=== PATIENT | male | born 1990 | race Caucasian/White ===

== ENCOUNTER 2019-06-07 19:50 | Emergency (ER) | payer SELFPAY ==
[2019-06-07 19:52] VITALS: BP 123/62; PULSE 107; RESP 16; TEMP 36.9; O2SAT 99; BMI 29.2
--- NOTE | 2019-06-07 19:55 | ED_ITS ---
HPI - Seizure General: Chief Complaint: Seizure Stated Complaint: SEIZURE ACTIVITY Time Seen by Provider: 06/07/19 19:52 Source: EMS Mode of arrival: EMS Limitations: no limitations History of Present Illness: HPI Narrative: 29-year-old male who has a long history of seizures. Patient states he has not missed any doses of his seizure medicine but has had increasing seizures. He no longer sees a neurologist but does have an appointment with one coming up that is a new. Patient had a seizure roughly 1 hour before arrival that lasted 2 to 3 minutes. EMS states when they first arrived he was postictal but now is awake and alert able answer my questions. He denies any his head denies any headache. He denies any fevers. He denies any worsening or improving factors. MD complaint: seizure Onset (ago): minute(s) Description of Episode: loss of consciousness, tonic-clonic movement and post- event confusion Witnessed: Yes - by Bystander Trauma: No Seizure History: Yes Place: Home Associated symptoms: Deny chest pain, chills or fever(s) Review of Systems Const: Denies: fever, chills, body aches or change in appetite Eyes: Denies: blurry vision or eye discomfort ENMT: Denies: throat pain or dental pain Card: Denies: chest pain Resp: Denies: shortness of breath GI: Denies: abdominal pain, nausea, vomiting or diarrhea : Denies: painful urination Musc: Denies: neck pain or back pain Skin/Breast: Denies: rash Neuro: Reports: seizure-like activity; Denies: headache Psych: Denies: depression Skyler/Lymph: Denies: easy bruising All/Imm: Denies: hives PFSH ED PFSH: Social History Smoking and tobacco status: current every day smoker Physical Exam Const: COMMON NORMALS: no apparent distress, oriented x3 and healthy appearing HENMT: COMMON NORMALS: normocephalic and head/scalp atraumatic HEAD & SCALP: normocephalic and atraumatic Eye: COMMON NORMALS: PERRL and EOMs intact bilaterally PUPIL: Yes PERRL Neck/C-Spine: COMMON NORMALS: full ROM and supple Chest: COMMONS NORMALS: inspection of chest normal and palpation of chest normal Resp: COMMON NORMALS: normal respiratory effort, no retractions, no use of accessory muscles and clear to auscultation bilaterally AUSCULTATION: clear to auscultation bilaterally Cardio: COMMON NORMALS: regular rate, regular rhythm and no murmurs RATE: regular rate RHYTHM: regular rhythm GI: COMMON NORMALS: normal to inspection, nondistended, normoactive bowel sounds, soft to palpation, non-tender and no masses PALPATION: Yes soft Extremity: COMMON NORMALS: normal to inspection and full ROM Neuro: COMMON NORMALS: oriented x3, moves all extremities and no focal motor deficits Psych: COMMON NORMALS: mental status grossly normal, thought process normal and cooperative THOUGHT PROCESS: normal thought process Skin: COMMON NORMALS: no rashes or lesions noted and no wounds GENERAL SKIN EXAM: no rashes or lesions noted Course Vital Signs: Vital signs: Vital Signs Temperature 98.5 F 06/07/19 19:52 Pulse Rate 88 06/07/19 21:21 Respiratory Rate 18 06/07/19 21:21 Blood Pressure 141/77 06/07/19 21:21 Pulse Oximetry 100 06/07/19 21:21 MDM - Seizure MDM Narrative: Medical decision making narrative: Patient presents here with seizure. He has been taking his seizure meds and is well-appearing here. Patient is stable for discharge and is to return if worsening. He is to follow- up with his neurologist soon as possible. Discharge Plan Discharge Patient Disposition: Home, Self-Care Clinical Impression: Generalized seizure Condition: Stable Prescriptions: No Action oxcarbazepine 600 mg Tablet 600 mg PO BID RF: 0 topiramate 50 mg Capsule,Extended Release 24hr 50 mg PO DAILY RF: 0 Discharge Orders: Discharge Order (Routine); Ordered 06/07/19 Ordered By: Leah Sevilla Referrals: Valeria Soria DO [Primary Care Provider] - 1-3 days Discharge Diet: Advance as tolerated Discharge Activity: Resume usual activity Patient Instructions: Recurrent Seizures Adult (ED) Discharge Date/Time: 06/07/19 21:22 Coding Level of Care Code ED [employer] for [employer] F[employer] Exam Comprehensive
[2019-06-07 20:04] VITALS: BP 123/62; PULSE 103; RESP 16; O2SAT 100
[2019-06-07 21:21] VITALS: BP 141/77; PULSE 88; RESP 18; O2SAT 100
== END 2019-06-07 21:22 | disposition home or self-care (01) ==
LOC: ER 20:36
PROVIDERS: Emergency Provider Emergency Medicine; Family Provider Family Medicine; PCP Family Medicine
DX: G40.409 Other generalized epilepsy and epileptic syndromes, not intractable, without status epilepticus (principal); F17.200 Nicotine dependence, unspecified, uncomplicated
CPT/HCPCS: 12345; 99282